=== PATIENT | male | born 1995 | race Caucasian/White ===

== ENCOUNTER 2024-01-09 | Emergency (ER) | payer SELFPAY ==
[~2024-01-09] VITALS: Ht 157.5 cm; Wt 74.8 kg
[2024-01-09 00:47] VITALS: BP 145/78; PULSE 74; RESP 16; TEMP 97.9; O2SAT 100
[2024-01-09] MEDS ORDERED: NAPR-54 PO (04:26)
[2024-01-09] MEDS: KETOROLAC 30 MG/ML VIAL IM ONE (04:35)
[2024-01-09] MEDS: BACITRACIN OINT 500 UNITS/GM PKT TP ONE (04:36)
[2024-01-09 04:40] VITALS: BP 141/83; PULSE 81; RESP 16; TEMP 97.9; O2SAT 100
== END 2024-01-09 13:05 | disposition home or self-care (01) ==
LOC: MED
DX: S46.812A Strain of other muscles, fascia and tendons at shoulder and upper arm level, left arm, initial encounter (principal); S50.02XA Contusion of left elbow, initial encounter; Z79.899 Other long term (current) drug therapy; W05.1XXA Fall from non-moving nonmotorized scooter, initial encounter; Y93.89 Activity, other specified; Y92.89 Other specified places as the place of occurrence of the external cause; Y99.8 Other external cause status
CPT/HCPCS: 73030; 73080; 73110; 73130; 96372; 99284; J1885